=== PATIENT | female | born 1985 | race Hispanic/Latino ===

== ENCOUNTER 2017-05-10 12:17 | Emergency (ER) | payer SELFPAY ==
[~2017-05-10 12:17] MED LIST: CIPR-278 PO; IBUP-1673 PO; METO-549 PO; ONDA8TAB8 PO
[2017-05-10] MEDS ORDERED: ONDANSETRON ODT 4 MG TAB ONE (14:24)
[2017-05-10] MEDS ORDERED: DiphenhydrAMINE HCL 50 MG/ML VIAL ONE (14:24)
== END 2017-05-10 15:17 | disposition left against medical advice (07) ==
LOC: EDH 12:17
DX: R42 Dizziness and giddiness (principal); Z72.0 Tobacco use
CPT/HCPCS: 99281; J1200

== ENCOUNTER 2018-04-08 12:50 | Emergency (ER) | payer SELFPAY ==
[2018-04-08] MEDS ORDERED: CLINDAMYCIN 600 MG/D5% WATER 50 ML IV ONE (13:22)
[2018-04-08] MEDS ORDERED: HYDROCODONE/ACETAMINOPHEN 5/325 MG TAB ONE (13:23)
== END 2018-04-08 15:23 | disposition home or self-care (01) ==
LOC: EDH 12:50
DX: L03.011 Cellulitis of right finger (principal); Z90.49 Acquired absence of other specified parts of digestive tract
CPT/HCPCS: 96365; 99283; J3490

== ENCOUNTER 2019-07-22 01:42 | Inpatient (IN) | payer SELFPAY ==
[~2019-07-22] VITALS: Ht 160 cm; Wt 55.1 kg
[2019-07-22] MEDS ORDERED: METOCLOPRAMIDE 10 MG/2 ML VIAL ONE (02:11)
[2019-07-22] MEDS ORDERED: ONDANSETRON HCL 4 MG/2 ML VIAL ONE (02:11)
[2019-07-22] MEDS ORDERED: FAMOTIDINE/PF 20 MG/2 ML VIAL IV ONE (02:11)
[2019-07-22 02:19] LABS: APPEARANCE,URINE Turbid (CLEAR); BILIRUBIN,URINE Negative (NEGATIVE); COLOR,URINE Yellow (YELLOW); GLUCOSE, URINE (UA) Negative (NEGATIVE); KETONES,URINE Negative (NEGATIVE); LEUKOCYTE ESTERASE ,URINE Small (NEGATIVE); NITRATE,URINE Negative (NEGATIVE); OCCULT BLOOD,URINE Negative (NEGATIVE); PROTEIN,URINE Negative (NEGATIVE)
[2019-07-22 02:27] LABS: HCG,QUAL RESULT NEGATIVE (NEGATIVE)
[2019-07-22 02:32] LABS: BASOPHILS % (AUTO) 0.3 % (0.0-5.0); HEMATOCRIT 29.3 % (36-48); LYMPHOCYTES % (AUTO) 35.6 % (21.0-51.0); MEAN CORPUSCULAR HEMOGLOBIN 18.8 pg (27.0-33.0); MEAN CORPUSCULAR VOLUME 62.6 fL (79-99); MONOCYTES % (AUTO) 6.1 % (3.0-13.0); NEUTROPHILS % (AUTO) 57.7 % (40.0-77.0); PLATELET COUNT (AUTO) 217 K/uL (130-400); RED BLOOD CELL COUNT(AUTO) 4.68 MIL/uL (4.00-5.50); RED CELL DISTRIBUTION WIDTH 15.6 % (11.0-15.5)
[2019-07-22 02:44] LABS: AMORPHOUS SEDIMENT,UR Moderate /LPF (None Seen); BACTERIA,URINE Few /HPF (None Seen); RBC,URINE 0-1 /HPF (0-1); SQUAMOUS EPITHELIAL CELL,UR 0-2 /HPF (0-2); WBC,URINE 0-1 /HPF (0-1)
[2019-07-22 02:44] LABS: CREATININE 0.8 mg/dL (0.5-1.5); POTASSIUM 3.1 mmol/L (3.5-5.1)
[2019-07-22 02:46] LABS: INR 1.02 (0.85-1.15); PARTIAL THROMBOPLASTIN TIME 24.3 SEC (26.3-35.5)
[2019-07-22 02:48] LABS: ALBUMIN 4.3 g/dL (3.5-5.0); BILIRUBIN,TOTAL 0.3 mg/dL (0.2-1.0); TOTAL PROTEIN, SERUM 7.2 g/dL (6.0-8.3)
[2019-07-22] MEDS ORDERED: ASPIRIN 325 MG TABLET ONE (03:36)
[2019-07-22 03:44] LABS: AMPHET/METH SCREEN,URINE NEGATIVE (NEGATIVE); BARBITURATE SCREEN, URINE NEGATIVE (NEGATIVE); BENZODIAZEPINES SCREEN,URINE NEGATIVE (NEGATIVE); CANNABINOID SCREEN,URINE NEGATIVE (NEGATIVE); COCAINE SCREEN,URINE NEGATIVE (NEGATIVE); OPIATE SCREEN,URINE NEGATIVE (NEGATIVE); PHENCYCLIDINE SCREEN,URINE NEGATIVE (NEGATIVE)
[2019-07-22] MEDS ORDERED: POTASSIUM CHLORIDE 10MEQ/100ML 100 ML IV PRN (04:00)
[2019-07-22] MEDS ORDERED: POTASSIUM CHLORIDE 10% ELIXIR 20 MEQ/15 ML UDCUP PO PRN (04:00)
[2019-07-22] MEDS ORDERED: HYDRALAZINE HCL 20 MG/ML VIAL IV PRN (04:00)
[2019-07-22] MEDS ORDERED: LACTULOSE 20 GM/30 ML UDCUP PO PRN (04:00)
[2019-07-22] MEDS ORDERED: ONDANSETRON HCL 4 MG/2 ML VIAL IV PRN (04:00)
[2019-07-22] MEDS ORDERED: LIDOCAINE HCL-MPF 1% 2ML VIAL IV PRN (04:00)
[2019-07-22] MEDS ORDERED: POTASSIUM CHLORIDE 20 MEQ ERTAB PO PRN (04:00)
[2019-07-22] MEDS ORDERED: ACETAMINOPHEN 325 MG TAB PO PRN ×2 (04:00)
[2019-07-22] MEDS ORDERED: POTASSIUM BICARB/CIT AC 25 MEQ TABLET.EFF ONE (04:35)
[2019-07-22 05:15] VITALS: BP 133/87
--- NOTE | 2019-07-22 05:15 | NUR ---
ADMISSION TRANSFERRED FROM ER INTO ROOM 324, AWAKE, ALERT AND VERBALLY RESPONSIVE. NO C/O PAIN OR DISCOMFORT AT THIS TIME. NO C/O CHEST PAIN OR PALPITATIONS. EMBOSSING TOOLSETTER PLACED AND FUNCTIONING. PT ORIENTED TO ROOM, CALL HERRERA WITHIN REACH, BED IN LOWEST POSITION. Addendum: 07/22/19 at 0534 by JOHNNIE MCKENNA RN Amended: Links added.
[2019-07-22 06:09] LABS: BASOPHILS % (AUTO) 0.2 % (0.0-5.0); HEMATOCRIT 28.3 % (36-48); LYMPHOCYTES % (AUTO) 33.9 % (21.0-51.0); MEAN CORPUSCULAR HEMOGLOBIN 18.8 pg (27.0-33.0); MEAN CORPUSCULAR VOLUME 62.6 fL (79-99); MONOCYTES % (AUTO) 5.8 % (3.0-13.0); NEUTROPHILS % (AUTO) 59.7 % (40.0-77.0); PLATELET COUNT (AUTO) 215 K/uL (130-400); RED BLOOD CELL COUNT(AUTO) 4.52 MIL/uL (4.00-5.50); RED CELL DISTRIBUTION WIDTH 15.6 % (11.0-15.5); WHITE BLOOD COUNT (AUTO) 4.7 K/uL (4.8-10.8)
[2019-07-22 06:21] LABS: HEMOGLOBIN A1C 5.2 % (4.0-6.0)
[2019-07-22 06:26] LABS: CREATININE 0.9 mg/dL (0.5-1.5); POTASSIUM 3.6 mmol/L (3.5-5.1)
[2019-07-22] MEDS: FAMOTIDINE 20MG TAB 20 MG TAB PO SCH ×2 (06:53→08:00)
[2019-07-22 08:00] VITALS: BP 116/80
[2019-07-22] MEDS: METOPROLOL TARTRATE 25 MG TAB PO SCH ×2 (08:00→21:18)
[2019-07-22] MEDS: ASPIRIN 81MG TAB.CHEW PO SCH (08:00)
[2019-07-22] MEDS: ENOXAPARIN SODIUM 40 MG/0.4 ML SYRINGE SQ SCH (08:01)
[2019-07-22 12:00] VITALS: BP 98/59
[2019-07-22] MEDS: PANTOPRAZOLE SODIUM 40 MG TABLET.DR PO SCH ×2 (12:54→21:18)
[2019-07-22 16:00] VITALS: BP 104/74
--- NOTE | 2019-07-22 16:53 | NUR ---
cm note met with patient and states resides athome with girlfriend, and 2 children 9 and 11yo. is independent with adls and self care. no dme. works manager [employer]. provided [facility] clincs and rx assist information. pt [facility] will followup. [facility] no dc needs. Addendum: 07/22/19 at 1657 by ALPA LOPEZ CM Amended: Links added.
[2019-07-22 19:00] VITALS: BP 110/66
[2019-07-22] MEDS ORDERED: TRAM100T40 PO (23:27)
[2019-07-22] MEDS ORDERED: FAMO20TA8 PO (23:27)
[2019-07-23] VITALS (7 sets, daily range): BP systolic 99–137; BP diastolic 54–81
[2019-07-23] MEDS: PANTOPRAZOLE SODIUM 40 MG TABLET.DR PO SCH ×2 (07:13→17:17)
[2019-07-23] MEDS: ASPIRIN 81MG TAB.CHEW PO SCH (08:26)
[2019-07-23] MEDS: METOPROLOL TARTRATE 25 MG TAB PO SCH ×2 (08:26→20:54)
[2019-07-23] MEDS: ENOXAPARIN SODIUM 40 MG/0.4 ML SYRINGE SQ SCH (08:27)
[2019-07-23 09:06] LABS: BASOPHILS % (AUTO) 0.5 % (0.0-5.0); EOSINOPHILS % (AUTO) 0.2 % (0.0-8.0); HEMATOCRIT 30.5 % (36-48); LYMPHOCYTES % (AUTO) 38.5 % (21.0-51.0); MEAN CORPUSCULAR HEMOGLOBIN 19.1 pg (27.0-33.0); MEAN CORPUSCULAR HGB CONC 30.5 g/dL (32.0-36.0); MEAN CORPUSCULAR VOLUME 62.8 fL (79-99); MONOCYTES % (AUTO) 8.2 % (3.0-13.0); NEUTROPHILS % (AUTO) 52.4 % (40.0-77.0); PLATELET COUNT (AUTO) 264 K/uL (130-400); RED BLOOD CELL COUNT(AUTO) 4.86 MIL/uL (4.00-5.50); RED CELL DISTRIBUTION WIDTH 15.8 % (11.0-15.5); WHITE BLOOD COUNT (AUTO) 4.2 K/uL (4.8-10.8)
[2019-07-23 09:22] LABS: RETICULOCYTE % (AUTO) 1.75 % (0.42-2.23)
[2019-07-23 09:25] LABS: MAGNESIUM 1.9 mg/dL (1.80-2.40); POTASSIUM 4.1 mmol/L (3.5-5.1)
[2019-07-24] MEDS ORDERED: SIMETHICONE 80 MG TAB.CHEW PO PRN (01:45)
[2019-07-24] MEDS ORDERED: SIMETHICONE 80 MG TAB.CHEW ONE (01:48)
[2019-07-24 03:51] VITALS: BP 107/65
[2019-07-24 05:30] LABS: ALBUMIN 3.8 g/dL (3.5-5.0); BILIRUBIN,TOTAL 0.6 mg/dL (0.2-1.0); CREATININE 0.8 mg/dL (0.5-1.5); POTASSIUM 3.9 mmol/L (3.5-5.1)
[2019-07-24 08:02] VITALS: BP 117/75
[2019-07-24] MEDS: ASPIRIN 81MG TAB.CHEW PO SCH (08:43)
[2019-07-24] MEDS: PANTOPRAZOLE SODIUM 40 MG TABLET.DR PO SCH (08:44)
[2019-07-24] MEDS: METOPROLOL TARTRATE 25 MG TAB PO SCH (08:44)
[2019-07-24] MEDS: ENOXAPARIN SODIUM 40 MG/0.4 ML SYRINGE SQ SCH (08:45)
--- NOTE | 2019-07-24 11:00 | NUR ---
PATIENT REFUSED TROPONIN LAB RE CHECK.
[2019-07-24 11:08] VITALS: BP 117/81
[2019-07-24] MEDS ORDERED: ESOM20CA39 PO (12:21)
[2019-07-24] MEDS ORDERED: SIME80 PO (12:21)
[2019-07-24] MEDS ORDERED: METO25 PO (12:21)
--- NOTE | 2019-07-24 12:30 | NUR ---
DISCHARGE PATIENT GIVEN DISCHARGE INSTRUCTIONS AND EDUCATION ON FOLLOW UP APPOINTMENTS, STOPPING SEROQUEL AND RX PRESCRIBED. PATIENT VERBALIZED UNDERSTANDING OF ALL EDUCATION GIVEN VIA TEACH BACK, EDUCATIONAL MATERIAL PROVIDED, PCP LIST PROVIDED. IV DISCONTINUED, CATHETER INTACT. NO DISTRESS NOTED UPON DISCHARGE. ALL BELONGINGS TAKEN WITH.
== END 2019-07-24 13:30 | disposition home or self-care (01) | DRG 641 ==
LOC: EDH 01:42 → EDHIP 01:43 → OBSVTOIN 01:43 → 3DH 04:18
PROVIDERS: ADMIT Hospitalist; ATTEND Hospitalist
DX: E87.6 Hypokalemia (principal); R00.2 Palpitations; K21.9 Gastro-esophageal reflux disease without esophagitis; R79.89 Other specified abnormal findings of blood chemistry; D50.9 Iron deficiency anemia, unspecified; Z82.3 Family history of stroke; Z83.3 Family history of diabetes mellitus; Z82.5 Family history of asthma and other chronic lower respiratory diseases; Z82.0 Family history of epilepsy and other diseases of the nervous system; Z82.49 Family history of ischemic heart disease and other diseases of the circulatory system
CPT/HCPCS: 36415; 71045; 80048; 80053; 80061; 80305; 81001; 81025; 82550; 82728; 83010; 83036; 83540; 83550; 83605; 83615; 83690; 83735; 84484; 85025; 85045; 85610; 85730; 93005; 93306; 93356; G0378; J1650; J2405; J2765; J3490

== ENCOUNTER 2019-10-01 11:56 | Emergency (ER) | payer SELFPAY ==
[~2019-10-01 11:56] MED LIST changes: -CIPR-278 PO; +ESOM20CA39 PO; -IBUP-1673 PO; -METO-549 PO; +METO25 PO; -ONDA8TAB8 PO; +SIME80 PO
[2019-10-01 12:54] LABS: BASOPHILS % (AUTO) 0.8 % (0.0-5.0); EOSINOPHILS % (AUTO) 0.3 % (0.0-8.0); LYMPHOCYTES % (AUTO) 44.2 % (21.0-51.0); MEAN CORPUSCULAR HEMOGLOBIN 19.5 pg (27.0-33.0); MEAN CORPUSCULAR HGB CONC 30.3 g/dL (32.0-36.0); MEAN CORPUSCULAR VOLUME 64.5 fL (79-99); MONOCYTES % (AUTO) 6.1 % (3.0-13.0); NEUTROPHILS % (AUTO) 48.3 % (40.0-77.0); PLATELET COUNT (AUTO) 302 K/uL (130-400); RED BLOOD CELL COUNT(AUTO) 5.43 MIL/uL (4.00-5.50); RED CELL DISTRIBUTION WIDTH 15.6 % (11.0-15.5); WHITE BLOOD COUNT (AUTO) 3.8 K/uL (4.8-10.8)
[2019-10-01 13:07] LABS: APPEARANCE,URINE CLOUDY (CLEAR); BILIRUBIN,URINE SMALL (NEGATIVE); COLOR,URINE YELLOW (YELLOW); GLUCOSE, URINE (UA) NEGATIVE (NEGATIVE); KETONES,URINE 5 mg/dL (NEGATIVE); LEUKOCYTE ESTERASE ,URINE MODERATE (NEGATIVE); NITRATE,URINE NEGATIVE (NEGATIVE); OCCULT BLOOD,URINE NEGATIVE (NEGATIVE); PH,URINE 6.5 (5.0-8.0); PROTEIN,URINE TRACE mg/dL (NEGATIVE)
[2019-10-01 13:15] LABS: HCG,QUAL RESULT NEGATIVE (NEGATIVE); PARTIAL THROMBOPLASTIN TIME 25.6 SEC (26.3-35.5); PROTHROMBIN TIME 10.8 SEC (9.6-11.6)
[2019-10-01 13:22] LABS: BACTERIA,URINE Moderate /HPF (None Seen); RBC,URINE 0-1 /HPF (0-1)
[2019-10-01 13:23] LABS: SQUAMOUS EPITHELIAL CELL,UR Moderate /HPF (0-2)
[2019-10-01 13:24] LABS: MUCUS,URINE Moderate LPF (None Seen)
[2019-10-01 13:26] LABS: ALBUMIN 4.3 g/dL (3.5-5.0); CREATININE 1.1 mg/dL (0.5-1.5); THYROID STIMULATING HORMONE 0.69 uIU/mL (0.36-3.74); TOTAL PROTEIN, SERUM 7.5 g/dL (6.0-8.3)
[2019-10-01 13:30] LABS: POTASSIUM 2.2 mmol/L (3.5-5.1)
[2019-10-01] MEDS ORDERED: MAGNESIUM 2GM PREMIX 50ML 50 ML IV ONE (14:10)
[2019-10-01] MEDS ORDERED: POTASSIUM BICARB/CIT AC 25 MEQ TABLET.EFF ONE ×2 (14:11→16:26)
[2019-10-01] MEDS ORDERED: POTASSIUM CHLORIDE 20MEQ/100ML 100 ML IV ONE (14:11)
[2019-10-01] MEDS ORDERED: LIDOCAINE HCL-MPF 1% 2ML VIAL ONE (14:22)
[2019-10-01 16:55] LABS: AMPHET/METH SCREEN,URINE NEGATIVE (NEGATIVE); BARBITURATE SCREEN, URINE NEGATIVE (NEGATIVE); BENZODIAZEPINES SCREEN,URINE NEGATIVE (NEGATIVE); CANNABINOID SCREEN,URINE NEGATIVE (NEGATIVE); COCAINE SCREEN,URINE NEGATIVE (NEGATIVE); OPIATE SCREEN,URINE NEGATIVE (NEGATIVE); PHENCYCLIDINE SCREEN,URINE NEGATIVE (NEGATIVE)
[2019-10-01 18:16] LABS: MAGNESIUM 2.5 mg/dL (1.80-2.40); POTASSIUM 3.2 mmol/L (3.5-5.1)
== END 2019-10-01 19:17 | disposition home or self-care (01) ==
LOC: EDH 11:56
DX: E87.6 Hypokalemia (principal); R00.2 Palpitations; N39.0 Urinary tract infection, site not specified; F41.9 Anxiety disorder, unspecified; I10 Essential (primary) hypertension; Z79.899 Other long term (current) drug therapy
CPT/HCPCS: 36415; 71045; 80053; 80305; 81001; 81025; 82550; 83690; 83735; 84132 ×2; 84443; 84484; 85025; 85610; 85730; 87088; 93005; 96365; 96366 ×2; 96368; 99285; J3475; J3480; J3490

== ENCOUNTER 2019-10-03 20:00 | Emergency (ER) | payer SELFPAY ==
[2019-10-03 20:46] LABS: CREATININE 1.1 mg/dL (0.5-1.5)
[2019-10-03] MEDS ORDERED: POTASSIUM CHLORIDE 10% ELIXIR 20 MEQ/15 ML UDCUP ONE (21:33)
[2019-10-03] MEDS ORDERED: POTASSIUM CHLORIDE 20 MEQ ERTAB PO ONE (21:41)
== END 2019-10-03 23:28 | disposition home or self-care (01) ==
LOC: EDH 20:00
DX: E87.6 Hypokalemia (principal); R06.4 Hyperventilation
CPT/HCPCS: 36415; 80048; 93005

== ENCOUNTER 2020-04-05 15:10 | Emergency (ER) | payer OTHER ==
[~2020-04-05 15:10] MED LIST changes: -SIME80 PO; +SIME80TA13 PO
[2020-04-05] MEDS ORDERED: FENTANYL 2500MCG+NS 250ML 250 ML IV ONE (15:30)
[2020-04-05] MEDS ORDERED: DEXAMETHASONE SOD PHOSPHATE 10MG/ML 1ML VIAL ONE (15:41)
[2020-04-05] MEDS ORDERED: KETOROLAC TROMETHAMINE 60 MG/2 ML VIAL ONE (15:41)
[2020-04-05] MEDS ORDERED: LORAZEPAM 2 MG/ML 1 ML VIAL ONE (15:42)
[2020-04-05] MEDS ORDERED: HYDROMORPHONE 1 MG/1 ML AMP ONE (15:42)
[2020-04-05 15:54] LABS: HCG,QUAL RESULT NEGATIVE (NEGATIVE)
[2020-04-05 15:56] LABS: APPEARANCE,URINE Clear (CLEAR); BILIRUBIN,URINE Negative (NEGATIVE); COLOR,URINE Yellow (YELLOW); GLUCOSE, URINE (UA) Negative (NEGATIVE); KETONES,URINE Negative (NEGATIVE); LEUKOCYTE ESTERASE ,URINE Moderate (NEGATIVE); NITRATE,URINE Negative (NEGATIVE); OCCULT BLOOD,URINE Large (NEGATIVE); PH,URINE 5.5 (5.0-8.0); PROTEIN,URINE Trace mg/dL (NEGATIVE)
[2020-04-05 16:03] LABS: AMPHET/METH SCREEN,URINE NEGATIVE (NEGATIVE); BARBITURATE SCREEN, URINE NEGATIVE (NEGATIVE); BENZODIAZEPINES SCREEN,URINE POSITIVE (NEGATIVE); CANNABINOID SCREEN,URINE NEGATIVE (NEGATIVE); COCAINE SCREEN,URINE NEGATIVE (NEGATIVE); OPIATE SCREEN,URINE NEGATIVE (NEGATIVE); PHENCYCLIDINE SCREEN,URINE NEGATIVE (NEGATIVE)
[2020-04-05 16:20] LABS: BACTERIA,URINE Few /HPF (None Seen); MUCUS,URINE Moderate LPF (None Seen); RBC,URINE 51-100 /HPF (0-1); SQUAMOUS EPITHELIAL CELL,UR Moderate /HPF (0-2)
== END 2020-04-05 16:57 | disposition home or self-care (01) ==
LOC: EDH 15:10
DX: M54.5 Low back pain (principal); M54.6 Pain in thoracic spine; M79.7 Fibromyalgia; Z90.49 Acquired absence of other specified parts of digestive tract; Z72.0 Tobacco use
CPT/HCPCS: 80305; 81001; 81025; 87088; 96372 ×4; 99284; J1100; J1170; J1885; J2060; J3010

== ENCOUNTER 2020-06-26 22:54 | Emergency (ER) | payer OTHER ==
[2020-06-27 00:23] LABS: APPEARANCE,URINE Clear (CLEAR); BILIRUBIN,URINE Negative (NEGATIVE); COLOR,URINE Yellow (YELLOW); GLUCOSE, URINE (UA) Negative (NEGATIVE); KETONES,URINE Negative (NEGATIVE); LEUKOCYTE ESTERASE ,URINE Moderate (NEGATIVE); NITRATE,URINE Negative (NEGATIVE); OCCULT BLOOD,URINE Negative (NEGATIVE); PH,URINE 5.5 (5.0-8.0); PROTEIN,URINE Negative (NEGATIVE)
[2020-06-27 00:25] LABS: HCG,QUAL RESULT NEGATIVE (NEGATIVE)
[2020-06-27 00:32] LABS: BACTERIA,URINE Few /HPF (None Seen); RBC,URINE 0-1 /HPF (0-1)
[2020-06-27 00:33] LABS: SQUAMOUS EPITHELIAL CELL,UR Moderate /HPF (0-2)
[2020-06-27] MEDS ORDERED: DiphenhydrAMINE HCL 50 MG/ML VIAL ONE (00:54)
[2020-06-27] MEDS ORDERED: PROCHLORPERAZINE 10MG/2ML INJ ONE (00:54)
== END 2020-06-27 01:37 | disposition home or self-care (01) ==
LOC: EDH 22:54
DX: G43.009 Migraine without aura, not intractable, without status migrainosus (principal); N39.0 Urinary tract infection, site not specified; Z90.49 Acquired absence of other specified parts of digestive tract; Z79.899 Other long term (current) drug therapy
CPT/HCPCS: 81001; 81025; 87088; 96374; 96375; 99284; J0780; J1200

== ENCOUNTER 2020-07-08 22:05 | Emergency (ER) | payer OTHER ==
[2020-07-08 22:34] LABS: APPEARANCE,URINE Clear (CLEAR); BILIRUBIN,URINE Negative (NEGATIVE); COLOR,URINE Yellow (YELLOW); GLUCOSE, URINE (UA) Negative (NEGATIVE); KETONES,URINE Negative (NEGATIVE); LEUKOCYTE ESTERASE ,URINE Moderate (NEGATIVE); NITRATE,URINE Negative (NEGATIVE); OCCULT BLOOD,URINE Negative (NEGATIVE); PH,URINE 5.5 (5.0-8.0); PROTEIN,URINE Negative (NEGATIVE)
[2020-07-08 22:46] LABS: BACTERIA,URINE Few /HPF (None Seen); MUCUS,URINE Few LPF (None Seen); RBC,URINE None Seen /HPF (0-1)
[2020-07-08] MEDS ORDERED: KETOROLAC TROMETHAMINE 30MG/ML ONE (22:51)
[2020-07-08] MEDS ORDERED: LEVOFLOXACIN 750 MG/D5W 150 ML 150 ML ONE (22:51)
[2020-07-08 22:59] LABS: BASOPHILS % (AUTO) 0.3 % (0.0-5.0); EOSINOPHILS % (AUTO) 0.2 % (0.0-8.0); HEMATOCRIT 32.7 % (36-48); LYMPHOCYTES % (AUTO) 25.6 % (21.0-51.0); MEAN CORPUSCULAR HEMOGLOBIN 19.1 pg (27.0-33.0); MEAN CORPUSCULAR HGB CONC 29.4 g/dL (32.0-36.0); MONOCYTES % (AUTO) 6.6 % (3.0-13.0); NEUTROPHILS % (AUTO) 65.8 % (40.0-77.0); PLATELET COUNT (AUTO) 230 K/uL (130-400); RED BLOOD CELL COUNT(AUTO) 5.03 MIL/uL (4.00-5.50); RED CELL DISTRIBUTION WIDTH 15.5 % (11.0-15.5); WHITE BLOOD COUNT (AUTO) 6.5 K/uL (4.8-10.8)
[2020-07-08 23:20] LABS: CREATININE 0.8 mg/dL (0.5-1.5); POTASSIUM 3.5 mmol/L (3.5-5.1)
[2020-07-08 23:25] LABS: ALBUMIN 3.7 g/dL (3.5-5.0); BILIRUBIN,TOTAL 0.2 mg/dL (0.2-1.0); TOTAL PROTEIN, SERUM 7.1 g/dL (6.0-8.3)
== END 2020-07-09 00:58 | disposition home or self-care (01) ==
LOC: EDH 22:05
DX: N39.0 Urinary tract infection, site not specified (principal); E86.0 Dehydration; M54.5 Low back pain; M79.7 Fibromyalgia; Z72.0 Tobacco use
CPT/HCPCS: 36415; 80053; 81001; 81025; 85025; 87088; 96365; 96375; 99284; J1885; J1956